=== PATIENT | male | born 1995 | race African-American/Black ===

== ENCOUNTER 2016-05-25 17:47 | Observation (INO) | payer BC, OTHER ==
[2016-05-25 18:10] VITALS: BP 132/80; PULSE 82; RESP 17; TEMP 97.5; O2SAT 100
--- NOTE | 2016-05-25 18:24 | PD ---
HPI Chief Complaint: Injury Time Seen by Provider: 18:21 Travel History International Travel<30 days: No Contact w/Intl Traveler<30days: No Traveled to known affect area: No History of Present Illness HPI 21-year-old male with no significant medical history presents to the emergency department for evaluation of right ankle injury. Patient was in track practice when he was working on Lul exercises when he came down directly on his right foot. He states that is when it snapped. Reports severe right ankle pain. Has been given 6 mg of morphine IV. Reports that he cannot feel the distal foot. He has no other symptoms to report. [facility] Past Medical History Medical History: Denies Significant Hx Social History Alcohol Use: No Tobacco Use: No Substance Use: No Allergies-Medications (Allergen,Severity, Reaction): Coded Allergies: No Known Allergies (Unverified , 05/25/16) Reported Meds & Prescriptions Reported Meds & Active Scripts Active No Active Prescriptions or Reported Medications Review of Systems Except as stated in HPI: all other systems reviewed are Neg Physical Exam Narrative GENERAL: Well-nourished, well-developed male patient, tearful but in no acute distress SKIN: Focused skin assessment warm/dry. Abrasion over the lateral aspect of the right ankle HEAD: Normocephalic. EYES: No scleral icterus. No injection or drainage. NECK: Supple, trachea midline. No JVD or lymphadenopathy. CARDIOVASCULAR: Regular rate and rhythm without murmurs, gallops, or rubs. RESPIRATORY: Breath sounds equal bilaterally. No accessory muscle use. GASTROINTESTINAL: Abdomen soft, non-tender, nondistended. EXTREMITY: The right ankle is very tender and swollen, with tenting and deformity over the lateral aspect. The range of motion is limited because of the pain and swelling. Obvious deformity. NEUROVASCULAR: foot is warm and well-perfused, dorsalis pedis pulse is palpable. Patient states that he cannot feel the distal foot when touched. MUSCULOSKELETAL: No cyanosis, or edema. BACK: Nontender without obvious deformity. No CVA tenderness. Data Data Last Documented VS Vital Signs Date Time Temp Pulse Resp B/P Pulse Ox O2 Delivery O2 Flow Rate FiO2 05/25/16 19:12 70 16 151/91 100 05/25/16 18:10 97.5 Orders Iv Access Insert/Monitor (05/25/16 18:16) Complete Blood Count With Diff (05/25/16 18:16) Basic Metabolic Panel (Bmp) (05/25/16 18:16) Coag Profile (05/25/16 18:16) Ankle, Complete ([id number]) (05/25/16 ) Ondansetron Inj (Zofran Inj) (05/25/16 18:45) Hydromorphone Pf Inj (Dilaudid Pf Inj) (05/25/16 18:45) Propofol 200 Mg/20 Ml Inj (Diprivan 200 (05/25/16 18:45) Fiberglass Short Leg Splint Ad (05/25/16 ) Fiberglass Sugartong Sp Ad Sl (05/25/16 ) Ice Cuff (05/25/16 ) Support Splint (05/25/16 19:57) Ice / Cold Pack PRN (05/25/16 19:57) Diet Regular Basic (05/25/16 Dinner) Ct Ankle W/O Contrast (05/25/16 ) Consult Orthopedic (05/25/16 ) Labs Laboratory Tests Test 05/25/16 18:22 White Blood Count 6.3 TH/MM3 Red Blood Count 4.85 MIL/MM3 Hemoglobin 14.8 GM/DL Hematocrit 43.6 % Mean Corpuscular Volume 89.8 FL Mean Corpuscular Hemoglobin 30.6 PG Mean Corpuscular Hemoglobin 34.1 % Concent Red Cell Distribution Width 13.4 % Platelet Count 160 TH/MM3 Mean Platelet Volume 11.0 FL Neutrophils (%) (Auto) 67.6 % Lymphocytes (%) (Auto) 23.5 % Monocytes (%) (Auto) 6.7 % Eosinophils (%) (Auto) 0.8 % Basophils (%) (Auto) 1.4 % Neutrophils # (Auto) 4.3 TH/MM3 Lymphocytes # (Auto) 1.5 TH/MM3 Monocytes # (Auto) 0.4 TH/MM3 Eosinophils # (Auto) 0.0 TH/MM3 Basophils # (Auto) 0.1 TH/MM3 CBC Comment DIFF FINAL Differential Comment Prothrombin Time 11.7 SEC Prothromb Time International 1.1 RATIO Ratio Activated Partial 25.1 SEC Thromboplast Time Sodium Level 139 MEQ/L Potassium Level 3.6 MEQ/L Chloride Level 104 MEQ/L Carbon Dioxide Level 23.0 MEQ/L Anion Gap 12 MEQ/L Blood Urea Nitrogen 14 MG/DL Creatinine 1.47 MG/DL Estimat Glomerular Filtration 60 ML/MIN Rate Random Glucose 113 MG/DL Calcium Level 9.5 MG/DL MDM Medical Decision Making Medical Screen Exam Complete: Yes Emergency Medical Condition: Yes Medical Record Reviewed: Yes Differential Diagnosis Ankle fracture versus contusion versus dislocation versus sprain Narrative Course 21-year-old male presents to emergency department for evaluation of right ankle injury. Although obvious deformity with tenting and mild abrasion over the lateral aspect of the deformity, the foot is warm with a palpable pulse. Patient reports decreased sensation in the distal foot. I discussed the patient my attending physician Dr. Mchugh who came and evaluated the patient. Patient was moved immediately to a medical bed where reduction took place. Please refer to his note for details. X-ray within complete and showed a lateral malleolus fracture. There is some possible disruption of the cortex of the distal tibia. CT imaging is ordered. I discussed the patient with Dr. Be. He requests admission to medicine with a consult to Dr. Penn for the morning. Patient will be nothing by mouth after midnight. A call placed to [facility] for admission Diagnosis Primary Impression: Ankle fracture, lateral malleolus, closed Qualified Code: S82.61XA - Closed displaced fracture of lateral malleolus of right fibula, initial encounter Admitting Information Admitting Physician Requests: Observation Scripts No Active Prescriptions or Reported Meds Condition: Stable Lanny Bassett May 25, 2016 18:24
[2016-05-25] MEDS ORDERED: PROPOFOL 200 MG/20 ML AMP IV ONE (18:45)
[2016-05-25] MEDS ORDERED: ONDANSETRON HCL 4 MG/2 ML VIAL IV ONE (18:45)
[2016-05-25] MEDS ORDERED: HYDROmorphone HCL PF 2 MG/ML VIAL IVS ONE (18:45)
[2016-05-25 18:51] LABS: APTT (PATIENT) 25.1 SEC (24.3-30.1); INTERNATIONAL NORMALIZED RATIO 1.1 RATIO; PROTHROMBIN TIME - PATIENT 11.7 SEC (9.8-11.6)
[2016-05-25 18:54] LABS: AUTOMATED NEUTROPHIL # 4.3 TH/MM3 (1.8-7.7); BASOPHIL # 0.1 TH/MM3 (0-0.2); BASOPHIL % 1.4 % (0.0-2.0); EOSINOPHIL % 0.8 % (0.0-4.0); HEMATOCRIT 43.6 % (39.0-51.0); HEMO FLAGS DIFF FINAL; LYMPH % 23.5 % (9.0-44.0); LYMPHOCYTE # 1.5 TH/MM3 (1.0-4.8); MEAN CELL VOLUME 89.8 FL (80.0-100.0); MEAN CORPUSCULAR HEMOGLOBIN 30.6 PG (27.0-34.0); MEAN CORPUSCULAR HGB CONC 34.1 % (32.0-36.0); MONO % 6.7 % (0.0-8.0); NEUT % 67.6 % (16.0-70.0); PLATELET COUNT 160 TH/MM3 (150-450); RED BLOOD COUNT 4.85 MIL/MM3 (4.50-5.90); RED CELL DISTRIBUTION WIDTH 13.4 % (11.6-17.2); WHITE BLOOD COUNT 6.3 TH/MM3 (4.0-11.0)
[2016-05-25 18:57] LABS: POTASSIUM 3.6 MEQ/L (3.5-5.1)
--- NOTE | 2016-05-25 19:04 | PD ---
Data Data Last Documented VS Vital Signs Date Time Temp Pulse Resp B/P Pulse Ox O2 Delivery O2 Flow Rate FiO2 05/25/16 18:10 97.5 82 17 132/80 100 Orders Iv Access Insert/Monitor (05/25/16 18:16) Complete Blood Count With Diff (05/25/16 18:16) Basic Metabolic Panel (Bmp) (05/25/16 18:16) Coag Profile (05/25/16 18:16) Ankle, Complete ([id number]) (05/25/16 ) Ondansetron Inj (Zofran Inj) (05/25/16 18:45) Hydromorphone Pf Inj (Dilaudid Pf Inj) (05/25/16 18:45) Propofol 200 Mg/20 Ml Inj (Diprivan 200 (05/25/16 18:45) Labs Laboratory Tests Test 05/25/16 18:22 White Blood Count 6.3 TH/MM3 Red Blood Count 4.85 MIL/MM3 Hemoglobin 14.8 GM/DL Hematocrit 43.6 % Mean Corpuscular Volume 89.8 FL Mean Corpuscular Hemoglobin 30.6 PG Mean Corpuscular Hemoglobin 34.1 % Concent Red Cell Distribution Width 13.4 % Platelet Count 160 TH/MM3 Mean Platelet Volume 11.0 FL Neutrophils (%) (Auto) 67.6 % Lymphocytes (%) (Auto) 23.5 % Monocytes (%) (Auto) 6.7 % Eosinophils (%) (Auto) 0.8 % Basophils (%) (Auto) 1.4 % Neutrophils # (Auto) 4.3 TH/MM3 Lymphocytes # (Auto) 1.5 TH/MM3 Monocytes # (Auto) 0.4 TH/MM3 Eosinophils # (Auto) 0.0 TH/MM3 Basophils # (Auto) 0.1 TH/MM3 CBC Comment DIFF FINAL Differential Comment Prothrombin Time 11.7 SEC Prothromb Time International 1.1 RATIO Ratio Activated Partial 25.1 SEC Thromboplast Time Sodium Level 139 MEQ/L Potassium Level 3.6 MEQ/L Chloride Level 104 MEQ/L Carbon Dioxide Level 23.0 MEQ/L Anion Gap 12 MEQ/L Blood Urea Nitrogen 14 MG/DL Creatinine 1.47 MG/DL Estimat Glomerular Filtration 60 ML/MIN Rate Random Glucose 113 MG/DL Calcium Level 9.5 MG/DL [facility] Supervised Visit with SHEKHAR: Yes Procedures Procedure Narrative Documenting procedure on this patient. I evaluated this patient and he was in a hallway bed. He has an obvious fracture dislocation of the right ankle but it is so tense and tight against the skin and certainly threatening at any moment to become an open injury. This is what I took great pains to prevent We emergently moved him into the medical pod room and did conscious sedation. We discussed risks and benefits and he agreed and also signed the forms. He is attached to oximetry and telemetry monitoring and has oxygen by cannula IV placed I gave him 80 mg IV Diprivan This achieved a good level of sedation I applied distal traction to the foot and was able to reduce the dislocation There was no open wound just a slight abrasion to the top of the foot. Afterwards he has good pulse It is splinted Postreduction x-ray ordered He tolerated the procedure fine Total bedside time 15 minutes Additional 60 minutes to let the sedation wore off with oximetry and telemetry monitoring Scripts No Active Prescriptions or Reported Meds Condition: Stable Aubrey Mchugh MD May 25, 2016 19:04
[2016-05-25 19:12] VITALS: BP 151/91; PULSE 70; RESP 16; O2SAT 100
[2016-05-25 20:00] VITALS: BP 148/86; PULSE 78; RESP 16; O2SAT 100
--- NOTE | 2016-05-25 20:05 | RADRPT ---
EXAM DATE/TIME: 05/25/2016 18:49 [facility] COMPARISON: No previous studies available for comparison. INDICATIONS : Right ankle post reduction. MEDICAL HISTORY : None. SURGICAL HISTORY : None. ENCOUNTER: Initial ACUITY: 1 day PAIN SCORE: 10/10 LOCATION: Right ankle. FINDINGS: Soft tissue swelling is present with a slightly displaced lateral malleolar fracture. The ankle morti se appears intact. CONCLUSION: Lateral malleolar fracture. Mary Jo Ponce MD on May 25, 2016 at 20:03 Board Certified Radiologist. This report was verified electronically.
[2016-05-25] MEDS ORDERED: HYDROmorphone HCL PF 1 MG/ML VIAL IV PUSH PRN (21:15)
--- NOTE | 2016-05-25 21:25 | RADRPT ---
EXAM DATE/TIME: 05/25/2016 21:02 [facility] COMPARISON: ANKLE RIGHT COMPLETE ([id number]), May 25, 2016, 18:49. INDICATIONS : Fell on and twisted right ankle today; pain since. RADIATION DOSE: 7.29 CTDIvol (mGy) MEDICAL HISTORY : None SURGICAL HISTORY : None. ENCOUNTER: Initial ACUITY: 1 day PAIN SCALE: 7/10 LOCATION: Right Ankle TECHNIQUE: Volumetric scanning of the ankle was performed. Using automated exposure control and adjustment of t he mA and/or kV according to patient size, radiation dose was kept as low as reasonably achievable to obtain optimal diagnostic quality images. FINDINGS: There is a slightly displaced lateral malleolar fracture. Soft tissue swelling is seen. There ar e hypertrophic changes involving the talus anteriorly may be due to old trauma. There is a fracture i nvolving the calcaneus anterolaterally as well. CONCLUSION: Fractures of lateral malleolus and anterolateral portion of the calcaneus. Mary Jo Ponce MD on May 25, 2016 at 21:20 Board Certified Radiologist. This report was verified electronically.
[2016-05-25] MEDS: SODIUM CHLOR 0.9% 1000 ML INJ 1,000 ML IV SCH (21:32)
[2016-05-25 22:00] VITALS: BP 126/69; PULSE 86; RESP 16; O2SAT 100
[2016-05-25] MEDS ORDERED: MORPHINE SULFATE 4 MG/ML INJ IV PUSH PRN (23:15)
[2016-05-25] MEDS ORDERED: ACETAMINOPHEN/HYDROcodone 325 MG/7.5 MG TAB PO PRN (23:15)
[2016-05-25] MEDS: ACETAMINOPHEN/HYDROcodone 325 MG/7.5 MG TAB PO PRN (23:36)
[2016-05-26 00:54] VITALS: BP 120/64; PULSE 70; RESP 19; TEMP 98.4; O2SAT 98
[2016-05-26] MEDS ORDERED: ONDANSETRON HCL 4 MG/2 ML VIAL IV PUSH PRN (02:15)
--- NOTE | 2016-05-26 02:18 | HHI.HP ---
[facility] Service [facility] Primary Care Physician Non-Staff Admission Diagnosis r ankle dislocation/reduction fracture Diagnoses: (1) Ankle fracture, lateral malleolus, closed Diagnosis: Principal Chief Complaint: pain to the right ankle Travel History International Travel<30 Days: No Contact w/Intl Traveler <30 Da: No Traveled to Known Affected Are: No History of Present Illness patient is a 21 y/o male with no significant past medical history who presented to ER with right ankle pain. he says that he was on track practice when he came down and landed on the right foot after which he started to have severe pain to the right ankle. he was found to have an ankle fracture. he underwent closed reduction in ER. he was resting fairly comfortably during my evaluation.he denies any other complaints. Review of Systems Constitutional: DENIES: Fever, Weight loss, Chills, Night Sweats Eyes: DENIES: Blurred vision, Diplopia, Vision loss, Double Vision Ears, nose, mouth, throat: DENIES: Tinnitus, Vertigo, Throat pain, Epistaxis Respiratory: DENIES: Apneas, Cough, Snoring, Wheezing, Hemoptysis, Sputum production, Shortness of breath Cardiovascular: DENIES: Chest pain, Palpitations, Syncope, Dyspnea on Exertion , PND, Lower Extremity Edema, Orthopnea, Claudication Gastrointestinal: DENIES: Abdominal pain, Black stools, Bloody stools, Constipation, Diarrhea, Nausea, Vomiting, Difficulty Swallowing, Anorexia Genitourinary: DENIES: Urinary frequency, Urgency, Hematuria, Dysuria Musculoskeletal: COMPLAINS OF: Joint pain (right ankle), DENIES: Muscle aches , Stiffness, Joint Swelling Integumentary: DENIES: Rash Neurologic: DENIES: Abnormal gait, Headache, Localized weakness, Paresthesias, Seizures, Speech Problems, Tremor, Poor Balance Psychiatric: DENIES: Anxiety, Confusion, Mood changes, Depression, Hallucinations, Agitation, Suicidal Ideation, Homicidal Ideation, Delusions Past Family Social History Past Medical History not significant. Reported Medications none reported. Allergies: Coded Allergies: No Known Allergies (Unverified , 05/25/16) Active Ordered Medications Current Medications Ondansetron HCl (Zofran Inj) 4 mg ONCE ONCE IV ; Start 05/25/16 at 18:45; Stop 05/25/16 at 18:45; Status DC Hydromorphone HCl (Dilaudid Pf Inj) 2 mg ONCE ONCE IVS ; Start 05/25/16 at 18:45 ; Stop 05/25/16 at 18:45; Status DC Propofol 100 mg 100 mg ONCE ONCE IV Last administered on 05/25/16 19:11; Start 05/25/16 at 18:45; Stop 05/25/16 at 18:46; Status DC Sodium Chloride (NS 1000 ml Inj) 1,000 ml @ 100 mls/hr Q10H IV Last administered on 05/25/16 21:32; Start 05/25/16 at 21:15 Hydromorphone HCl (Dilaudid Pf Inj) 0.5 mg Q4H PRN IV PUSH PAIN 1-10 Last administered on 05/25/16 21:44; Start 05/25/16 at 21:15; Stop 05/25/16 at 23:05; Status DC Morphine Sulfate (Morphine Inj) 2 mg Q3H PRN IV PUSH BREAKTHROUGH PAIN Last administered on 05/26/16 01:49; Start 05/25/16 at 23:15 Acetaminophen/ Hydrocodone Bitart ([place] 7.5-325 Mg) 1 tab Q4H PRN PO PAIN < 5 ; Start 05/25/16 at 23:15 Acetaminophen/ Hydrocodone Bitart ([place] 7.5-325 Mg) 2 tab Q4HR PRN PO PAIN > 5 Last administered on 05/25/16 23:36; Start 05/25/16 at 23:15 Family History not relevant to this presentation. Social History no smoking or drinking. Physical Exam Vital Signs Vital Signs Date Time Temp Pulse Resp B/P Pulse Ox O2 Delivery O2 Flow Rate FiO2 05/26/16 00:54 98.4 70 19 120/64 98 05/25/16 22:00 86 16 126/69 100 05/25/16 20:00 78 16 148/86 100 05/25/16 19:12 70 16 151/91 100 05/25/16 18:10 97.5 82 17 132/80 100 Physical Exam GENERAL: This is a well-nourished, well-developed patient, in no apparent distress. SKIN: No rashes, ecchymoses or lesions. Cool and dry. HEAD: Atraumatic. Normocephalic. No temporal or scalp tenderness. EYES: Pupils equal round and reactive. Extraocular motions intact. No scleral icterus. No injection or drainage. ENT: Nose without bleeding, purulent drainage or septal hematoma. Throat without erythema, tonsillar hypertrophy or exudate. Uvula midline. Airway patent. NECK: Trachea midline. No JVD or lymphadenopathy. Supple, nontender, no meningeal signs. CARDIOVASCULAR: Regular rate and rhythm without murmurs, gallops, or rubs. RESPIRATORY: Clear to auscultation. Breath sounds equal bilaterally. No wheezes , rales, or rhonchi. GASTROINTESTINAL: Abdomen soft, non-tender, nondistended. No hepato-splenomegaly , or palpable masses. No guarding. MUSCULOSKELETAL: right leg on traction. NEUROLOGICAL: Awake and alert. Cranial nerves II through XII intact. Motor and sensory grossly within normal limits. Five out of 5 muscle strength in all muscle groups. Normal speech. Laboratory Laboratory Tests Test 05/25/16 18:22 White Blood Count 6.3 Red Blood Count 4.85 Hemoglobin 14.8 Hematocrit 43.6 Mean Corpuscular Volume 89.8 Mean Corpuscular Hemoglobin 30.6 Mean Corpuscular Hemoglobin 34.1 Concent Red Cell Distribution Width 13.4 Platelet Count 160 Mean Platelet Volume 11.0 Neutrophils (%) (Auto) 67.6 Lymphocytes (%) (Auto) 23.5 Monocytes (%) (Auto) 6.7 Eosinophils (%) (Auto) 0.8 Basophils (%) (Auto) 1.4 Neutrophils # (Auto) 4.3 Lymphocytes # (Auto) 1.5 Monocytes # (Auto) 0.4 Eosinophils # (Auto) 0.0 Basophils # (Auto) 0.1 CBC Comment DIFF FINAL Differential Comment Prothrombin Time 11.7 Prothromb Time International 1.1 Ratio Activated Partial 25.1 Thromboplast Time Sodium Level 139 Potassium Level 3.6 Chloride Level 104 Carbon Dioxide Level 23.0 Anion Gap 12 Blood Urea Nitrogen 14 Creatinine 1.47 Estimat Glomerular Filtration 60 Rate Random Glucose 113 Calcium Level 9.5 Result Diagram: 05/25/16 1822 05/25/16 1822 Imaging Last Impressions Lower Extremity CT 05/25/16 0000 Signed Impressions: Service Date/Time: May 21:02 - CONCLUSION: Fractures of lateral malleolus and anterolateral portion of the calcaneus. Mary Jo Ponce MD Ankle X-Ray 05/25/16 0000 Signed Impressions: Service Date/Time: May 18:49 - CONCLUSION: Lateral malleolar fracture. Mary Jo Ponce MD Assessment and Plan Assessment and Plan A/P -right ankle fracture/dislocation- s/p closed reduction in ER continue with pain control- ortho consulted. keep NPO for now. -acute kidney injury; continue IV fluid and monitor the renal function; repeat BMP in am. -DVT prophylaxis; pending the ortho evaluation Discussed Condition With ER physician and the patient. Problem Qualifiers (1) Ankle fracture, lateral malleolus, closed: Qualified Code: S82.61XA - Closed displaced fracture of lateral malleolus of right fibula, initial encounter Ken Cook MD May 26, 2016 02:18
[2016-05-26] MEDS: ACETAMINOPHEN/HYDROcodone 325 MG/7.5 MG TAB PO PRN ×3 (05:15→13:05)
[2016-05-26] MEDS ORDERED: HYDR-3288 PO (06:38)
--- NOTE | 2016-05-26 06:40 | PD.ORT.PN ---
Subjective Subjective Remarks consult will be dicated 21 yo male with right ankle fx/dislocation-- s/p reduction Objective Vitals Vital Signs Date Time Temp Pulse Resp B/P Pulse Ox O2 Delivery O2 Flow Rate FiO2 05/26/16 01:55 21 05/26/16 00:54 98.4 70 19 120/64 98 05/25/16 22:00 86 16 126/69 100 05/25/16 20:00 78 16 148/86 100 05/25/16 19:12 70 16 151/91 100 05/25/16 18:10 97.5 82 17 132/80 100 Result Diagram: 05/25/16 1822 05/25/16 1822 Other Results Laboratory Tests Test 05/25/16 18:22 Prothrombin Time 11.7 SEC (9.8-11.6) Prothromb Time International 1.1 RATIO Ratio Objective Remarks pt awake and alert In splint NVI right foot Assessment & Plan Assessment and Plan PT-- NWB plan non-op tx f/u ortho 1 wk clear for d/c home Elfego Trevino MD May 26, 2016 06:40
[2016-05-26 08:00] VITALS: BP 121/70; PULSE 61; RESP 18; TEMP 98.7; O2SAT 96
[2016-05-26] MEDS: SODIUM CHLOR 0.9% 1000 ML INJ 1,000 ML IV SCH (08:06)
[2016-05-26 08:17] LABS: BICARBONATE 26.9 MEQ/L (21.0-32.0); POTASSIUM 3.6 MEQ/L (3.5-5.1)
[2016-05-26 12:00] VITALS: BP 126/66; PULSE 61; RESP 18; TEMP 98.6; O2SAT 98
--- NOTE | 2016-05-26 12:40 | HHI.PR ---
Subjective Remarks pain controlled no back pain, no tingling or numbness on the foot Objective Vitals Vital Signs Date Time Temp Pulse Resp B/P Pulse Ox O2 Delivery O2 Flow Rate FiO2 05/26/16 12:00 98.6 61 18 126/66 98 05/26/16 10:21 18 05/26/16 08:00 98.7 61 18 121/70 96 05/26/16 01:55 21 05/26/16 00:54 98.4 70 19 120/64 98 05/25/16 22:00 86 16 126/69 100 05/25/16 20:00 78 16 148/86 100 05/25/16 19:12 70 16 151/91 100 05/25/16 18:10 97.5 82 17 132/80 100 Result Diagram: 05/25/16 1822 05/26/16 0729 Imaging Last Impressions Lower Extremity CT 05/25/16 0000 Signed Impressions: Service Date/Time: May 21:02 - CONCLUSION: Fractures of lateral malleolus and anterolateral portion of the calcaneus. Mary Jo Ponce MD Ankle X-Ray 05/25/16 0000 Signed Impressions: Service Date/Time: May 18:49 - CONCLUSION: Lateral malleolar fracture. Mary Jo Ponce MD Objective Remarks anicteric sclerae no nuchal rigidity lungs clear regular rhythm HR 58/min abdomen soft, nontender extremities - right foot - - soft cast/splint in place, good peripheral pulses moves all extremities spontaneously ambulated well with crutches Procedures 05/26- closed reduction A/P Problem List: (1) Ankle fracture, lateral malleolus, closed ICD Code: S82.63XA Status: Acute Assessment and Plan A/P -right ankle fracture/dislocation- s/p closed reduction i c;eared by orthopedics for DC- OP ff up acute kidney injury- resolved - encourage po fluids Diet regular Activity-non weightbearing right LE FF up with Orthopedics as OP-Dr. Henry in 1 week FF up Sports training room at the school- Dr. Hoskins Problem Qualifiers (1) Ankle fracture, lateral malleolus, closed: Qualified Code: S82.61XA - Closed displaced fracture of lateral malleolus of right fibula, initial encounter Morgan Santizo MD May 26, 2016 12:40
--- NOTE | 2016-05-26 16:19 | MB ---
cc: ANDREW ZUÑIGA DATE OF CONSULTATION: 05/26/2016 REASON FOR CONSULTATION: Right ankle fracture, dislocation. CONSULTING PHYSICIAN: HISTORY [place] is a 21-year-old male who was at track practice. 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 He was jumping when his foot landed on an uneven surface. He rolls ankle. He had immediate right ankle pain and deformity. He was unable to stand or ambulate. He presented emergency room. The patient underwent closed reduction in the emergency department under conscious sedation. Postreduction x-rays revealed an ankle was concentrically reduced. The patient has a minimally displaced distal fibula fracture. He is currently awake and alert in the emergency department. His only complaint is his right ankle. Pain is worse with movement and is improved with rest. PAST MEDICAL HISTORY/ILLNESSES None ALLERGIES None MEDICATIONS None SURGERIES None. FAMILY HISTORY Noncontributory. 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 He denies alcohol, tobacco or drug use. REVIEW OF SYSTEMS The patient denies headache, visual changes, neck pain, chest pain, shortness of breath, abdominal pain, nausea or recent weight loss. He complains of right ankle pain. Pain is worse with movement. PHYSICAL EXAMINATION IN GENERAL: The patient is a well-developed, well-nourished 21-year-old male in no acute distress. He is awake and alert. He is alert and x3. VITAL SIGNS: Temperature 90.7, pulse 61, respirations 18, blood pressure 121/70, O2 sat 96% on room air. HEAD, EYES, EARS, NOSE, AND THROAT: Head: The patient is normocephalic. Pupils are equal. NECK: Soft, nontender. Trachea is midline. ABDOMEN: Soft, nontender, nondistended. EXTREMITIES: Examination of bilateral upper extremities reveals no significant pain with shoulder, elbow or wrist motion. He has intact sensation in all fingers. He has good cap refill fingers. Skin is intact in both hands. Examination of left leg reveals no significant pain with hip, knee or ankle motion. Skin is intact. Dorsalis pedis pulses palpable. Sensation is intact. Examination of right leg reveals no pain with hip or knee motion. He is diffusely tender around the ankle. There is mild swelling present. He is tender to palpitation of the distal fibula. Skin is intact, dorsalis pedis pulses palpable. He has good cap refill is toes. Calf compartments are soft. X-RAYS X-rays of right ankle were reviewed, x-rays revealed the ankle and subtalar joint consistent reduced. There is a minimally displaced distal fibula fracture. The syndesmosis appears intact. IMPRESSION Right ankle fracture-dislocation status post closed reduction. PLAN The treatment options were discussed with the patient at this point fracture is well-aligned. The ankle joint is also concentrically reduced. I discussed with him surgical and nonsurgical options. At this point I feel that the non surgical treatment would yield excellent result to his ankle. Risks, benefits of both option discussed in-depth with the patient and the patient is to be with nonoperative treatment. He will made in a well-padded splint. He will follow up in the office in 1 week for repeat x-rays of right ankle. Physical therapy will be consulted for evaluation and correction training. He understands the fracture displaces surgical intervention could become necessary. All questions were answered. A mid-level provider in my office, nurse practitioner or PA, may see this patient on a follow-up basis and continue to implement the objective of this plan including: Starting or adjusting medications, injections of muscle, tendon, bursa or joints, cast application, orthotic or brace application, physical therapy, further radiographic studies including x-ray, MRI, CT, ultrasounds or bone scan, vascular studies, neurologic studies, or other specialist consultations, and proceeding with surgical management as appropriate. MD MARTINE Larson/saeid /10:26 AM /3:35 PM
== END 2016-05-26 14:17 | disposition home or self-care (01) ==
LOC: NEPE 17:47 → NEDA 21:15 → NEPHCDU 05-26 00:35
PROVIDERS: ADMIT Internal Medicine; ATTEND Internal Medicine
DX: S82.61XA Displaced fracture of lateral malleolus of right fibula, initial encounter for closed fracture (principal); N17.9 Acute kidney failure, unspecified; X50.1XXA Overexertion from prolonged static or awkward postures, initial encounter
CPT/HCPCS: 27840; 73610; 73700; 80048; 85025; 85610; 85730; 97161; 99152; 99285; G0378; J1170; J2270; J7030

== ENCOUNTER 2016-05-27 09:46 | Emergency (ER) | payer BC, OTHER ==
[~2016-05-27] VITALS: Ht 170.2 cm; Wt 61.5 kg
[~2016-05-27 09:46] MED LIST: HYDR-3288 PO
[2016-05-27 09:47] VITALS: BP 134/70; PULSE 78; RESP 20; TEMP 97.8; O2SAT 99
--- NOTE | 2016-05-27 10:26 | PD ---
HPI Chief Complaint: Injury Time Seen by Provider: 10:26 Travel History International Travel<30 days: No Contact w/Intl Traveler<30days: No Traveled to known affect area: No History of Present Illness HPI 21-year-old male presents to the emergency Department with complaint of right lower extremity splint discomfort 2 days. He denies paresthesias, loss of sensation to the affected extremity. He says the tubing of the ice pack that is wrapped in the splint is pressing up against his bone and causing him discomfort. He does not know the name of the orthopedic doctor that he supposed to follow-up. He has been taking his pain medications as prescribed. He has been elevating the extremity and use crutches for support. He has no other medical complaints. No other modifying factors or associated signs and symptoms. PFSH Past Medical History Hx Anticoagulant Therapy: No Asthma: No Heart Rhythm Problems: No Cardiovascular Problems: No Chemotherapy: No Chest Pain: No Congestive Heart Failure: No Cerebrovascular Accident: No Diabetes: No Respiratory: No Social History Alcohol Use: No Tobacco Use: No Substance Use: No Allergies-Medications (Allergen,Severity, Reaction): Coded Allergies: No Known Allergies (Unverified , 05/27/16) Reported Meds & Prescriptions Reported Meds & Active Scripts Active [place] (Hydrocodone-Acetaminophen) 7.5-325 mg Tab 1 Tab PO Q4H PRN Review of Systems Except as stated in HPI: all other systems reviewed are Neg Physical Exam Narrative GENERAL: Well-nourished, well-developed male patient, in no acute distress SKIN: Warm and dry. HEAD: Atraumatic. Normocephalic. EYES: Pupils equal and round. No scleral icterus. No injection or drainage. ENT: Mucosa pink and moist. Airway patent. NECK: Trachea midline. CARDIOVASCULAR: Regular rate. RESPIRATORY: No accessory muscle use. GASTROINTESTINAL: Flat. MUSCULOSKELETAL: Right lower extremity with splint in place; toes are pink and warm without cyanosis; less than 3 second cap refill and sensory intact. No obvious deformities. No clubbing. No cyanosis. No edema. NEUROLOGICAL: Awake and alert. Oriented 3. No obvious cranial nerve deficits. Motor grossly within normal limits. Normal speech. PSYCHIATRIC: Appropriate mood and affect; insight and judgment normal. Data Data Last Documented VS Vital Signs Date Time Temp Pulse Resp B/P Pulse Ox O2 Delivery O2 Flow Rate FiO2 05/27/16 09:47 97.8 78 20 134/70 99 Room Air Orders [facility] Request For Service (05/27/16 10:54) MDM Medical Decision Making Medical Screen Exam Complete: Yes Emergency Medical Condition: Yes Medical Record Reviewed: Yes Differential Diagnosis Splint discomfort, splint change, medical clearance Narrative Course 21-year-old male with right lower extremity splint discomfort. He was here on May 25 with a right ankle fracture, dislocation and reduction. The orthopedic doctor was Dr. Penn. The patient has no other medical complaints. [facility] to come to the bedside for splint replacement. 1053: Splint replaced and patient reports improvement and no discomfort. Instructed patient to follow up with Dr. Penn or orthopedic surgeon of choice. Patient verbalizes understanding and agreement with treatment plan. Patient is medically cleared and stable for discharge. Discussed reasons to return to the emergency department. Instructed patient to follow up with primary care provider. Patient agrees with treatment plan. The patients vital signs are stable and the patient is stable for outpatient follow-up and treatment. Patient discharged home, stable and in no acute distress. Diagnosis Primary Impression: Aftercare for cast or splint check or change Referrals: Elfego Penn MD Primary Care Physician Patient Instructions: Crutch Instructions (ED), General Instructions, Splint Care (ED) Additional Instructions: Tylenol or ibuprofen instructed not needed for pain and inflammation Rest, ice, compress, and elevate extremity to decrease pain and inflammation Crutches for support Follow-up with primary care provider Follow-up with Dr. Penn, orthopedic surgeon; his information is provided a your discharge instructions Return to the emergency department immediately with worsening symptoms Med/Other Pt SpecificInfo: No Change to Meds, No Meds Exist/No RX given Disposition: 01 DISCHARGE HOME Condition: Stable Irma Vaughn May 27, 2016 10:26
== END 2016-05-27 11:29 | disposition home or self-care (01) ==
LOC: NEPK 09:46
DX: S82.891D Other fracture of right lower leg, subsequent encounter for closed fracture with routine healing (principal); X58.XXXD Exposure to other specified factors, subsequent encounter
CPT/HCPCS: 29515